=== PATIENT | male | born 1960 | race Caucasian/White ===

== ENCOUNTER → 2017-01-07 | Outpatient (CLI) | payer OTHER ==
[~2017-01-07] MED LIST: GADOBUTROL 10 ML VIAL IVP ONE
== END ==
LOC: FIMAGING 09:59
PROVIDERS: ATTEND Internal Medicine Hematology & Oncology
DX: K76.9 Liver disease, unspecified (principal); K74.60 Unspecified cirrhosis of liver; Z85.05 Personal history of malignant neoplasm of liver
CPT/HCPCS: A9585

== ENCOUNTER → 2017-02-13 | Outpatient (CLI) | payer OTHER | LOC: FIMAGING 12:56 | PROVIDERS: ATTEND Internal Medicine Hematology & Oncology | DX: Z12.39 Encounter for other screening for malignant neoplasm of breast (principal); N63 Unspecified lump in breast; K76.9 Liver disease, unspecified; Z85.05 Personal history of malignant neoplasm of liver | CPT/HCPCS: G0204 ==

== ENCOUNTER 2017-04-18 09:26 | Emergency (ER) | payer OTHER ==
[2017-04-18 09:34] VITALS: RESP 16; TEMP 97.7
[2017-04-18] MEDS ORDERED: LIDOCAINE 5% 1 EA PATCH TD ONE (10:01)
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
[2017-04-18 11:08] VITALS: BP 127/86; PULSE 55; O2SAT 97
[2017-04-18] MEDS ORDERED: PATCH REMOVAL 1 EA PATCH TD SCH (21:00)
== END 2017-04-18 11:08 | disposition home or self-care (01) ==
DX: S39.012A Strain of muscle, fascia and tendon of lower back, initial encounter (principal); F17.200 Nicotine dependence, unspecified, uncomplicated; Z85.05 Personal history of malignant neoplasm of liver; V49.49XA Driver injured in collision with other motor vehicles in traffic accident, initial encounter; Y92.410 Unspecified street and highway as the place of occurrence of the external cause; Y99.8 Other external cause status; Y93.89 Activity, other specified

== ENCOUNTER → 2018-08-13 | Outpatient (CLI) | payer OTHER ==
[~2018-08-13] MED LIST changes: -GADOBUTROL 10 ML VIAL IVP ONE; +IOPAMIDOL (ISOVUE 370) 100 ML BTL IV ONE
== END ==
LOC: FIMAGING 08:44
DX: I25.10 Atherosclerotic heart disease of native coronary artery without angina pectoris (principal); I65.23 Occlusion and stenosis of bilateral carotid arteries; I71.2 Thoracic aortic aneurysm, without rupture; K76.9 Liver disease, unspecified
CPT/HCPCS: Q9967

== ENCOUNTER 2018-08-29 09:04 | Day surgery (SDC) | payer OTHER ==
[2018-08-29] MEDS ORDERED: diphenhydrAMINE 25 MG CAP PO ONE ×2 (09:08→09:31)
[2018-08-29] MEDS ORDERED: NS 1,000 ML IV ONE (09:08)
[2018-08-29] MEDS ORDERED: FAMOTIDINE 20 MG TAB PO ONE (09:08)
[2018-08-29] MEDS ORDERED: ASPIRIN EC 325 MG TAB PO ONE ×2 (09:08→09:32)
[2018-08-29] MEDS ORDERED: DIAZEPAM 5 MG TAB PO ONE (09:08)
[2018-08-29] MEDS ORDERED: DIAZEPAM 5 MG TAB ONE (09:32)
[2018-08-29] MEDS ORDERED: FAMOTIDINE 20 MG TAB ONE (09:32)
[2018-08-29 10:10] LABS: PLATELET COUNT 70 10^3/uL (150-400)
[2018-08-29 10:21] LABS: INR 1.18 (0.83-1.16); PROTIME(PATIENT) 15.2 SEC (12.0-15.0)
[2018-08-29] MEDS ORDERED: LIDOCAINE 1% 300 MG/30 ML SDV ONE (10:47)
[2018-08-29] MEDS ORDERED: MIDAZOLAM 2 MG/2 ML VIAL ONE (10:48)
[2018-08-29] MEDS ORDERED: fentaNYL 100 MCG/2 ML INJ ONE (10:48)
[2018-08-29] MEDS ORDERED: VERAPAMIL 5 MG/2 ML VIAL ONE (10:48)
--- NOTE | 2018-08-29 10:48 | PDPROPOC ---
Sedation Plan of Care Sedation Plan of Care: vital signs stable, mental status noted, patient educated of risks, benefits, alternatives, patient can tolerate sedation ASA Classification: ASA 3 Planned drugs: fentanyl, midazolam Mallampati Score: Class 2 Mallampati Reference Image: Patient passed 3-3-2 rule?: Yes
[2018-08-29] MEDS ORDERED: HEPARIN 10,000 UNIT/10 ML MDV (1,000 UNIT/ML) ONE (10:49)
[2018-08-29] MEDS ORDERED: IOPAMIDOL (ISOVUE-370) 150 ML BTL IV ONE (10:49)
--- NOTE | 2018-08-29 10:49 | PDHPUP ---
History & Physical Update H&P update statement: This history and physical update is based on an assessment of the patient which was completed after admission or registration (within 24 hours), but prior to the surgery/procedure. H&P update: H&P reviewed & patient examined, changes noted (patient with 3 vessel coronary disease by CT needs liver transplant...)
[2018-08-29] MEDS ORDERED: ATROPINE SULFATE 1 MG/10 ML SYR IVP PRN (11:47)
[2018-08-29] MEDS ORDERED: NITROGLYCERIN 0.4 MG BTL SL PRN (11:47)
[2018-08-29] MEDS ORDERED: HYDROCODONE/APAP 5/325 TAB PO PRN (11:47)
[2018-08-29] MEDS ORDERED: ONDANSETRON 4 MG/2 ML VIAL IVP PRN (11:47)
[2018-08-29] MEDS ORDERED: OXYCODONE/APAP 5/325 TAB PO PRN (11:47)
--- NOTE | 2018-08-29 14:45 | CPIP ---
DATE OF PROCEDURE: 08/29/2018 PROCEDURE PERFORMED: 1. Selective coronary angiography. 2. Left heart catheterization. 3. Left ventriculogram. 4. TR band arteriotomy repair. COMPLICATIONS: None. INDICATIONS/APPROPRIATE USE CRITERIA: This patient has hepatocellular carcinoma and is on a transpla nt list. He was noted on CT angiography and CT coronary angiogram to have suspected flow-limiting ob struction of his coronary arteries. For this reason, it was recommended that he undergo cardiac cath eterization as a preoperative clearance. PROCEDURE IN DETAIL: After informed consent was obtained, n.p.o. status was confirmed. The region of the right wrist was cleaned, prepped, and draped in sterile fashion. A plethysmography and trace as sisted Landon test was performed documenting dual arterial supply of the right index finger. The juanito ent had a 5-Canadian sheath placed in the right radial artery with single anterior puncture of the vess el. The patient then underwent the previously mentioned diagnostic procedure with use of JR4 and JL3 5 and 5-Canadian pigtail catheters. Standard wire exchange technique was utilized for all catheter exc hanges. The right coronary artery is dominant giving rise to the posterior descending and posterolateral vent ricular branch. There is evidence of diffuse calcification on cine fluoroscopy which is consistent w ith underlying atherosclerosis. No flow-limiting obstruction of the vessel was identified. In the d istal right coronary artery, past the acute margin of the heart, there is an eccentric lesion which i s estimated to be 40-50 percent stenosed and does not appear to limit blood flow to the myocardium. The left main coronary lumen is approximately 5 mm in size and bifurcates into an LAD and circumflex system. The left main is quite short. There is a 30% distal narrowing of the left main proper and n o evidence of dampening of the waveform with selective injection of the left system. The left main d ivides into an LAD and circumflex. The proximal LAD has a 40% lesion in its proximal segment and a 4 0% tubular narrowing after the 1st diagonal takeoff. It courses the anterior apex without flow-limit ing obstruction, dissection, or thrombus. The circumflex vessel lumen is approximately 3-1/2 mm in s ize and gives rise to an important obtuse marginal branch. Again, there is diffuse calcification con sistent with underlying atherosclerosis. No flow-limiting obstruction is identified. The patient underwent left heart catheterization demonstrating elevated left ventricular end-diastoli c pressure measured at 18 mmHg. The patient underwent left ventriculogram in the TORRES projection, dem onstrating preserved left ventricular systolic function. Estimated ejection fraction is 60-65 percen t. No significant mitral regurgitation was noted. There was no evidence of a gradient upon pullback across aortic valve. The visualized portion of thoracic aorta reveals 3 sinuses of Valsalva most co nsistent with a trileaflet aortic valve. The aorta does not reveal evidence of fabricio aneurysm or dis section. SUMMARY OF FINDINGS: 1. Normal left ventricular chamber size with preserved left ventricular systolic function. Ejection fraction 65%. 2. Mildly elevated left ventricle end-diastolic pressure measured at 18 mmHg. No evidence of signif icant mitral regurgitation or aortic stenosis is noted. 3. The patient has diffuse and significant 3 vessel coronary artery disease as previously described. No luminal narrowing of greater than 70% is identified in the right coronary, left main, LAD or lef t circumflex vessels. The patient should be treated with a secondary prevention program to try to reduce the risk of athero sclerosis progression. Smoking cessation permanently and completely is imperative. The patient kari ld be able to proceed with planned liver transplant surgery without further cardiac testing. /[id number]/MODL
--- NOTE | 2018-08-30 10:02 | CPEKG ---
Test Reason : OPEN Blood Pressure : / mmHG Vent. Rate : 051 BPM Atrial Rate : 051 BPM P-R Int : 127 ms QRS Dur : 085 ms QT Int : 471 ms P-R-T Axes : -05 022 046 degrees QTc Int : 434 ms Sinus rhythm Atrial premature complex Left ventricular hypertrophy Borderline T abnormalities, lateral leads Confirmed by Elie Day ([id number]) on 08/30/2018 10:02:28 AM Referred By: Confirmed By:Elie Day
== END 2018-08-29 14:37 | disposition home or self-care (01) ==
LOC: FCATH 09:04
PROVIDERS: ATTEND Internal Medicine Cardiovascular Disease
DX: Z01.810 Encounter for preprocedural cardiovascular examination (principal); I25.10 Atherosclerotic heart disease of native coronary artery without angina pectoris; C22.0 Liver cell carcinoma; B18.2 Chronic viral hepatitis C; K74.60 Unspecified cirrhosis of liver; J44.9 Chronic obstructive pulmonary disease, unspecified; F17.210 Nicotine dependence, cigarettes, uncomplicated; R76.11 Nonspecific reaction to tuberculin skin test without active tuberculosis; Z76.82 Awaiting organ transplant status
CPT/HCPCS: J1644; J2250; J3010; Q9967